=== PATIENT | female | born 1975 | race Caucasian/White ===

== ENCOUNTER 2022-01-26 14:56 | Outpatient (CLI) | payer BC | END 2022-01-26 14:57 | disposition home or self-care (01) | LOC: BICCT 14:56 | PROVIDERS: ATTEND Surgery | DX: M43.16 Spondylolisthesis, lumbar region (principal); M51.37 Other intervertebral disc degeneration, lumbosacral region; M48.07 Spinal stenosis, lumbosacral region | CPT/HCPCS: 72131 ==

== ENCOUNTER 2022-02-17 09:08 | Outpatient (CLI) | payer BC ==
[2022-02-17 13:06] LABS: INR-International Normal Ratio 0.9; PTT 35.8 sec (22.9-36.1); Prothrombin Time 12.3 sec (12.0-14.7)
== END 2022-02-17 09:09 | disposition home or self-care (01) ==
LOC: LABBT 09:08
PROVIDERS: ATTEND Surgery
DX: Z01.818 Encounter for other preprocedural examination (principal); M54.16 Radiculopathy, lumbar region; M43.16 Spondylolisthesis, lumbar region
CPT/HCPCS: 85610; 85730; 93005; 93010

== ENCOUNTER 2022-02-22 06:21 | Inpatient (IN) | payer BC ==
[2022-02-17 12:54] LABS: Hemoglobin 13.6 g/dL (12.0-16.0); Mean Corpuscular HGB CONC 32.7 g/dL (32.0-36.0); Mean Corpuscular Hemoglobin 32.8 pg (27.0-31.0); Mean Platelet Volume 10.4 fL (7.4-10.4); Platelet Count 251 thou/uL (130-400); RBC Distribution Width 11.4 % (11.5-14.5); Red Blood Cell (RBC) Count 4.15 mill/uL (4.20-5.40); White Blood Cell (WBC) Count 5.3 thou/uL (4.8-10.8)
[2022-02-20 10:27] VITALS: BMI 30.5
[2022-02-20 11:44] LABS: Anion Gap 15 mmol/L (10-20); BUN (Urea Nitrogen) 14 mg/dL (7.0-18.7); Calc. Creatinine Clearance 105 mL/min (70-130); Calcium 9.4 mg/dL (7.8-10.44); Carbon Dioxide 20 mmol/L (22-29); Chloride 108 mmol/L (98-107); Estimated GFR 86; Glucose 92 mg/dL (70-105); Potassium 4.4 mmol/L (3.5-5.1); Sodium 139 mmol/L (136-145)
[2022-02-22] MEDS ORDERED: fentaNYL Citrate/PF 100 MCG/2 ML SYRINGE ONE ×2 (06:53→11:51)
[2022-02-22] MEDS ORDERED: Dexmedetomidine 200 MCG/2 ML VIAL ONE (06:53)
[2022-02-22] MEDS ORDERED: Thrombin 5000 UNITS/5 ML VIAL ONE (06:56)
[2022-02-22] MEDS ORDERED: CEFAZOLIN 2 GM VIAL ONE (07:14)
[2022-02-22] MEDS ORDERED: Sodium Chloride 0.9% 100 ML ONE (07:14)
[2022-02-22] MEDS ORDERED: Midazolam HCl 2 mg/2 ml Vial ONE (07:17)
[2022-02-22] MEDS ORDERED: Ketorolac Tromethamine 30 MG/ML VIAL ONE (07:38)
[2022-02-22] MEDS ORDERED: Rocuronium Bromide 10 MG/ML (10ML VIAL) ONE (07:38)
[2022-02-22] MEDS ORDERED: ePHEDrine 50 MG/ML VIAL ONE (07:38)
[2022-02-22] MEDS ORDERED: PROPOFOL 200 MG/20 ML VIAL ONE (07:38)
[2022-02-22] MEDS ORDERED: Dexamethasone 20 MG/5 ML VIAL ONE (07:38)
[2022-02-22] MEDS ORDERED: Lidocaine 1% MPF 2 ML VIAL ONE (07:38)
[2022-02-22] MEDS ORDERED: NEOSTIGMINE 3 MG/3 ML SYR 3 MG/3 ML SYRINGE ONE (07:38)
[2022-02-22] MEDS ORDERED: Ondansetron PF 4 MG/2 ML Vial ONE (07:38)
[2022-02-22] MEDS ORDERED: Glycopyrrolate 0.2 MG/ML 5 ML SYRINGE ONE (07:38)
[2022-02-22] MEDS ORDERED: Phenylephrine 10 MG/ML VIAL ONE (07:38)
[2022-02-22] MEDS ORDERED: Acetaminophen 325 MG TAB PO PRN (12:12)
[2022-02-22] MEDS ORDERED: HYDROcodone/Acetaminophen 7.5/325 mg Tablet PO PRN (12:12)
[2022-02-22] MEDS ORDERED: diphenhydrAMINE 25 MG CAP PO PRN (12:12)
[2022-02-22] MEDS ORDERED: Ondansetron PF 4 MG/2 ML Vial IVP PRN (12:12)
[2022-02-22] MEDS ORDERED: Polyethylene Glycol 3350 17 GM Packet PO PRN (12:16)
[2022-02-22] MEDS ORDERED: Fentanyl 100 MCG/2 ML VIAL ONE ×2 (12:17→12:54)
[2022-02-22] MEDS ORDERED: hydrALAZINE 20 MG/ML VIAL SLOW IVP PRN (12:18)
[2022-02-22] MEDS ORDERED: Meperidine HCl/PF 25 MG/ML VIAL SLOW IVP PRN (12:19)
[2022-02-22] MEDS ORDERED: Ondansetron HCl/PF 4 MG/2 ML Vial IVP PRN (12:19)
[2022-02-22] MEDS ORDERED: Promethazine HCl 25 MG/ML VIAL IVPB PRN (12:19)
[2022-02-22] MEDS ORDERED: HYDROmorphone 2 MG/ML VIAL SLOW IVP PRN (12:19)
[2022-02-22] MEDS ORDERED: Promethazine HCl 25 MG/ML VIAL IM PRN (12:19)
[2022-02-22] MEDS ORDERED: Loratadine 10 MG TAB PO PRN ×2 (12:35→12:45)
[2022-02-22] MEDS ORDERED: Pseudoephedrine HCl 30 MG TAB PO PRN (12:37)
[2022-02-22] MEDS ORDERED: Promethazine HCl 25 MG/ML VIAL ONE (12:56)
[2022-02-22] MEDS: Morphine 2 MG/ML VIAL SLOW IVP PRN ×2 (14:30→23:35)
[2022-02-22] MEDS: CEFAZOLIN 2 GM in Sodium Chloride 0.9% 100 ML IVPB SCH ×2 (15:30→23:39)
[2022-02-22] MEDS: Sodium Chloride 0.9% 1,000 ML IV SCH (15:31)
[2022-02-22] MEDS: traMADol HCl 50 MG TAB PO PRN (17:54)
[2022-02-22] MEDS: Acetaminophen/Codeine 30-300mg Tablet PO PRN (20:32)
[2022-02-22] MEDS: Docusate 100 MG CAP PO SCH (20:33)
[2022-02-22] MEDS: Diazepam 5 MG TAB PO PRN (20:33)
[2022-02-22] MEDS: HYDROcodone/Acetaminophen 7.5/325 mg Tablet PO PRN (23:37)
[2022-02-23] MEDS: Acetaminophen/Codeine 30-300mg Tablet PO PRN ×2 (01:37→07:37)
[2022-02-23] MEDS: Morphine 2 MG/ML VIAL SLOW IVP PRN ×4 (01:38→10:31)
[2022-02-23] MEDS: Diazepam 5 MG TAB PO PRN (04:26)
[2022-02-23] MEDS: traMADol HCl 50 MG TAB PO PRN (04:26)
[2022-02-23] MEDS: Sodium Chloride 0.9% 1,000 ML IV SCH ×2 (05:37→15:58)
[2022-02-23 07:14] LABS: #Lymphocytes 1.2 thou/uL (1.20-3.40); #Monocytes 1.1 thou/uL (0.11-0.59); #Neutrophils 7.6 thou/uL (1.40-6.50); %Basophils 0.1 % (0.0-1.0); %Eosinophils 0.1 % (0.0-10.0); %Lymphocytes 11.9 % (21.0-51.0); %Monocytes 10.8 % (0.0-10.0); %Neutrophils 77.1 % (42.0-75.0); Hemoglobin 10.9 g/dL (12.0-16.0); Mean Corpuscular Hemoglobin 33.8 pg (27.0-31.0); Mean Corpuscular Volume 99.4 fL (78.0-98.0); Mean Platelet Volume 9.7 fL (7.4-10.4); Platelet Count 190 thou/uL (130-400); RBC Distribution Width 11.3 % (11.5-14.5); Red Blood Cell (RBC) Count 3.24 mill/uL (4.20-5.40); White Blood Cell (WBC) Count 9.8 thou/uL (4.8-10.8)
[2022-02-23 07:26] LABS: Anion Gap 12 mmol/L (10-20); BUN (Urea Nitrogen) 7 mg/dL (7.0-18.7); Calc. Creatinine Clearance 126 mL/min (70-130); Calcium 8.1 mg/dL (7.8-10.44); Carbon Dioxide 22 mmol/L (22-29); Chloride 109 mmol/L (98-107); Estimated GFR 106; Glucose 119 mg/dL (70-105); Potassium 3.2 mmol/L (3.5-5.1); Sodium 140 mmol/L (136-145)
[2022-02-23] MEDS: CEFAZOLIN 2 GM in Sodium Chloride 0.9% 100 ML IVPB SCH ×2 (08:36→15:59)
[2022-02-23] MEDS: Docusate 100 MG CAP PO SCH ×2 (08:37→20:24)
[2022-02-23] MEDS: HYDROcodone/Acetaminophen 7.5/325 mg Tablet PO PRN (09:35)
[2022-02-23] MEDS ORDERED: Ketorolac Tromethamine 30 MG/ML VIAL IVP SCH (11:15)
[2022-02-23] MEDS ORDERED: Fentanyl 100 MCG/2 ML VIAL SLOW IVP PRN (11:39)
[2022-02-23] MEDS ORDERED: Dexamethasone 4 mg/ml Vial SLOW IVP SCH (11:45)
[2022-02-23] MEDS ORDERED: Gabapentin 300 MG CAP PO SCH (11:45)
[2022-02-23] MEDS: Gabapentin 300 MG CAP PO SCH ×2 (15:59→20:25)
[2022-02-23] MEDS: Dexamethasone 4 MG TAB PO SCH (18:21)
[2022-02-23] MEDS: Ketorolac Tromethamine 30 MG/ML VIAL IVP PRN (20:25)
[2022-02-24] MEDS: Dexamethasone 4 MG TAB PO SCH ×4 (00:12→17:46)
[2022-02-24] MEDS: CEFAZOLIN 2 GM in Sodium Chloride 0.9% 100 ML IVPB SCH ×2 (00:12→08:26)
[2022-02-24] MEDS: HYDROcodone/Acetaminophen 10/325 mg Tablet PO PRN ×3 (00:12→20:26)
[2022-02-24] MEDS: Sodium Chloride 0.9% 1,000 ML IV SCH ×2 (00:38→17:11)
[2022-02-24] MEDS: Ketorolac Tromethamine 30 MG/ML VIAL IVP PRN ×2 (03:42→14:59)
[2022-02-24] MEDS: Gabapentin 300 MG CAP PO SCH ×3 (08:25→20:26)
[2022-02-24] MEDS: Docusate 100 MG CAP PO SCH ×2 (08:26→20:26)
[2022-02-24] MEDS: Diazepam 5 MG TAB PO PRN (14:59)
[2022-02-24] MEDS: traMADol HCl 50 MG TAB PO PRN (17:45)
[2022-02-25] MEDS: HYDROcodone/Acetaminophen 10/325 mg Tablet PO PRN ×2 (00:34→05:12)
[2022-02-25] MEDS: Dexamethasone 4 MG TAB PO SCH ×3 (00:34→12:40)
[2022-02-25] MEDS: Sodium Chloride 0.9% 1,000 ML IV SCH ×2 (04:24→19:24)
[2022-02-25] MEDS: Ketorolac Tromethamine 30 MG/ML VIAL IVP PRN (06:43)
[2022-02-25] MEDS: Docusate 100 MG CAP PO SCH ×2 (08:11→19:49)
[2022-02-25] MEDS: Gabapentin 300 MG CAP PO SCH ×3 (08:11→19:49)
[2022-02-25] MEDS: HYDROcodone/Acetaminophen 7.5/325 mg Tablet PO PRN ×4 (10:26→23:39)
[2022-02-25] MEDS: Dexamethasone 1 MG TAB PO SCH ×2 (17:52→23:39)
[2022-02-26] MEDS: HYDROcodone/Acetaminophen 7.5/325 mg Tablet PO PRN ×4 (04:15→20:26)
[2022-02-26] MEDS: Dexamethasone 1 MG TAB PO SCH ×4 (05:42→23:58)
[2022-02-26] MEDS: Docusate 100 MG CAP PO SCH ×2 (09:20→20:26)
[2022-02-26] MEDS: Gabapentin 300 MG CAP PO SCH ×3 (09:21→20:26)
[2022-02-26] MEDS: Sodium Chloride 0.9% 1,000 ML IV SCH ×2 (09:35→21:47)
[2022-02-26] MEDS: Ketorolac Tromethamine 30 MG/ML VIAL IVP PRN (10:07)
[2022-02-26] MEDS: traMADol HCl 50 MG TAB PO PRN (12:25)
[2022-02-27] MEDS: HYDROcodone/Acetaminophen 7.5/325 mg Tablet PO PRN ×6 (02:13→23:08)
[2022-02-27] MEDS: traMADol HCl 50 MG TAB PO PRN ×3 (03:18→20:31)
[2022-02-27] MEDS: Diazepam 5 MG TAB PO PRN ×2 (04:53→20:30)
[2022-02-27] MEDS: Dexamethasone 1 MG TAB PO SCH ×4 (04:53→23:09)
[2022-02-27] MEDS: Docusate 100 MG CAP PO SCH ×2 (09:09→20:30)
[2022-02-27] MEDS: Gabapentin 300 MG CAP PO SCH ×3 (09:10→20:30)
[2022-02-27] MEDS: Sodium Chloride 0.9% 1,000 ML IV SCH (12:44)
[2022-02-28] MEDS: Sodium Chloride 0.9% 1,000 ML IV SCH (00:54)
[2022-02-28] MEDS: HYDROcodone/Acetaminophen 7.5/325 mg Tablet PO PRN ×3 (03:07→12:41)
[2022-02-28] MEDS: traMADol HCl 50 MG TAB PO PRN ×2 (05:19→13:33)
[2022-02-28] MEDS: Dexamethasone 1 MG TAB PO SCH ×2 (05:20→12:12)
[2022-02-28] MEDS: Diazepam 5 MG TAB PO PRN ×2 (05:28→13:34)
[2022-02-28 07:59] VITALS: TEMP 98.1
[2022-02-28] MEDS: Gabapentin 300 MG CAP PO SCH (08:27)
[2022-02-28] MEDS: Docusate 100 MG CAP PO SCH (08:27)
[2022-02-28 12:41] VITALS: BP 153/82
[2022-03-01] MEDS ORDERED: Dexamethasone 1 MG TAB PO SCH (18:00)
== END 2022-02-28 14:10 | DRG 455 ==
LOC: SDC 06:21 → SURG A 12:12 → OBSVTOIN 12:12
PROVIDERS: ADMIT Surgery; ATTEND Surgery
PROC: 0SG30AJ Fusion of Lumbosacral Joint with Interbody Fusion Device, Posterior Approach, Anterior Column, Open Approach (ICD-10-PCS; principal; 2022-02-22)
PROC: 0SG3071 Fusion of Lumbosacral Joint with Autologous Tissue Substitute, Posterior Approach, Posterior Column, Open Approach (ICD-10-PCS; 2022-02-22)
PROC: 0SB40ZZ Excision of Lumbosacral Disc, Open Approach (ICD-10-PCS; 2022-02-22)
PROC: 01NB0ZZ Release Lumbar Nerve, Open Approach (ICD-10-PCS; 2022-02-22)
PROC: 01NR0ZZ Release Sacral Nerve, Open Approach (ICD-10-PCS; 2022-02-22)
DX: M43.17 Spondylolisthesis, lumbosacral region (principal); M43.16 Spondylolisthesis, lumbar region; M54.16 Radiculopathy, lumbar region; Z20.822 Contact with and (suspected) exposure to COVID-19; M48.061 Spinal stenosis, lumbar region without neurogenic claudication; M54.40 Lumbago with sciatica, unspecified side
CPT/HCPCS: 36415; 76000; 80048; 85025; 85027; 86850; 86900; 86901; 87811; 93970; 96365; 96366; 96375; 96376; C1713; C1768; C1776; G0378; J0690; J1100; J1885; J2250; J2270; J2370; J2405; J2550; J2704; J3010; J3370; J3490; J7050; J8540